=== PATIENT | male | born 1940 | race Caucasian/White ===

== ENCOUNTER → 2017-04-19 | Outpatient (CLI) | payer OTHER | LOC: FIMAGING 09:49 | PROVIDERS: ATTEND Family Medicine | DX: Z13.6 Encounter for screening for cardiovascular disorders (principal); I25.10 Atherosclerotic heart disease of native coronary artery without angina pectoris ==

== ENCOUNTER → 2017-05-30 | Outpatient (CLI) | payer OTHER | PROVIDERS: ATTEND Otolaryngology | DX: R13.14 Dysphagia, pharyngoesophageal phase (principal); K21.9 Gastro-esophageal reflux disease without esophagitis; K22.5 Diverticulum of esophagus, acquired | CPT/HCPCS: 92611-GN ==

== ENCOUNTER 2018-05-27 19:32 | Emergency (ER) | payer OTHER ==
[2018-05-27 19:47] LABS: PLATELET COUNT 241 10^3/uL (150-400)
[2018-05-27 20:01] LABS: INR 1.78 (0.83-1.16); PROTIME(PATIENT) 20.8 SEC (12.0-15.0)
--- NOTE | 2018-05-27 21:11 | EDPHY ---
H & P Stated Complaint: POS SYNCOPAL EPISODE,ABRASIONS Time Seen by Provider: 05/27/18 19:40 HPI/ROS: Chief complaint: Nearly passed out History of present illness: This is a 78-year-old male brought to the emergency department by EMS after having nearly passed out. [place]. He reports he had been sitting in the hot tub for a prolonged period of time. Upon getting out, standing up and walking away from the hot tub he started feel lightheaded. He had to lower himself to the ground. Bystanders report he fell then lowered himself to the ground. He states other than being dizziness there was no precipitating factors such as chest pain or shortness of breath. He states he did not lose consciousness. He remembers the entire event. On my evaluation he states he feels well. He has no complaints. Currently no lightheadedness or dizziness, no chest pain, no shortness of breath. Review of systems: A 10 point review of systems was obtained and other than described above was negative - Personal History Current Tetanus Diphtheria and Acellular Pertussis (TDAP): Unsure Tetanus Vaccine Date: 05/2012 - Medical/Surgical History Hx Asthma: No Hx Chronic Respiratory Disease: No Hx Diabetes: No Hx Cardiac Disease: Yes Hx Renal Disease: No Hx Cirrhosis: No Hx Alcoholism: No Hx HIV/AIDS: No Hx Splenectomy or Spleen Trauma: No Other PMH: cabgx5, htn, ursula, COPD, DIVERTICULUM MICKYS - Social History Smoking Status: Former smoker - Physical Exam Exam: General Appearance: Alert, nontoxic. Eyes: Pupils equal and round no pallor or injection. ENT, Mouth: Mucous membranes moist. Respiratory: There are no retractions, lungs are clear to auscultation. Cardiovascular: Regular rate and rhythm. Gastrointestinal: Abdomen is soft and non tender, no masses, bowel sounds normal. Neurological: Alert and oriented x4. Cranial nerves 2-12 grossly intact. Strength and sensation intact and symmetrical. Skin: Warm and dry, no rashes. Musculoskeletal: Neck is supple non tender. Extremities are symmetrical, full range of motion. Ambulating without difficulty. Psychiatric: Patient is oriented X 3, there is no agitation. Constitutional: Initial Vital Signs Temperature (C) 36.6 C 05/27/18 19:32 Heart Rate 68 11/18/18 19:32 Respiratory Rate 14 05/27/18 19:32 Blood Pressure 124/87 H 05/27/18 19:32 O2 Sat (%) 98 05/27/18 19:32 O2 Delivery Mode Room Air Allergies/Adverse Reactions: No Known Allergies Allergy (Verified 10/03/12 10:42) Home Medications: Medication Instructions Recorded Levothyroxine [Synthroid 100 mcg 100 mcg PO HS 10/03/12 (*)] WARFARIN SODIUM 6 mg PO HS 05/03/16 Medical Decision Making ED Course/Re-evaluation: Patient is discussed with my secondary supervising physician Dr. Trey Falcon. Patient presents with EMS after having a near syncopal episode. He did have a preceding events of being in a hot tub for a prolonged period of time which could have caused a hypovolemic state and vasodilation leading to his near syncopal episode. On my evaluation he is asymptomatic. He is afebrile and vital signs are stable. Physical exam is benign including a nonfocal neurologic exam. Blood studies and EKG are unremarkable. I discussed other possible causes of his episode, although less likely they are still possible. I did offer him admission to the hospital overnight but he would prefer to go home. Home care is discussed. He is asked to follow up with his primary care doctor for recheck. Strict return precautions are given. The patient voiced understanding and agreement with plan. Differential Diagnosis: Included but not limited to hypovolemic state, vasovagal, electrolyte imbalances , cardiac dysrhythmia, ACS, CVA - Data Points Laboratory Results: Laboratory Results 05/27/18 19:32 05/27/18 19:32 05/27/18 05/27/18 05/27/18 20:38 19:32 19:32 WBC RBC Hgb Hct MCV MCH MCHC RDW Plt Count MPV Neut % (Auto) Lymph % (Auto) [place] % (Auto) Eos % (Auto) Baso % (Auto) Nucleat RBC Rel Count Absolute Neuts (auto) Absolute Lymphs (auto) Absolute Monos (auto) Absolute Eos (auto) Absolute Basos (auto) Absolute Nucleated RBC Immature Gran % Immature Gran # PT 20.8 SEC H SEC (12.0-15.0) INR 1.78 H (0.83-1.16) APTT 29.8 SEC SEC (23.0-38.0) Sodium 140 mEq/L mEq/L (135-145) Potassium 4.4 mEq/L mEq/L (3.3-5.0) Chloride 109 mEq/L mEq/L (97-110) Carbon Dioxide 23 mEq/l mEq/l (22-31) Anion Gap 8 mEq/L mEq/L (6-14) BUN 18 mg/dL mg/dL (7-23) Creatinine 1.2 mg/dL mg/dL (0.7-1.3) Estimated GFR 59 Glucose 104 mg/dL H mg/dL (70-100) Calcium 9.7 mg/dL mg/dL (8.5-10.4) POC Troponin I 0.01 ng/mL ng/mL (0.00-0.08) 05/27/18 19:32 WBC 6.10 10^3/uL 10^3/uL (3.80-9.50) RBC 5.36 10^6/uL 10^6/uL (4.40-6.38) Hgb 14.4 g/dL g/dL (13.7-17.5) Hct 44.5 % % (40.0-51.0) MCV 83.0 fL fL (81.5-99.8) MCH 26.9 pg L pg (27.9-34.1) MCHC 32.4 g/dL g/dL (32.4-36.7) RDW 14.6 % % (11.5-15.2) Plt Count 241 10^3/uL 10^3/uL (150-400) MPV 10.5 fL fL (8.7-11.7) Neut % (Auto) 55.8 % % (39.3-74.2) Lymph % (Auto) 33.0 % % (15.0-45.0) [place] % (Auto) 8.2 % % (4.5-13.0) Eos % (Auto) 2.0 % % (0.6-7.6) Baso % (Auto) 0.7 % % (0.3-1.7) Nucleat RBC Rel Count 0.0 % % (0.0-0.2) Absolute Neuts (auto) 3.41 10^3/uL 10^3/uL (1.70-6.50) Absolute Lymphs (auto) 2.01 10^3/uL 10^3/uL (1.00-3.00) Absolute Monos (auto) 0.50 10^3/uL 10^3/uL (0.30-0.80) Absolute Eos (auto) 0.12 10^3/uL 10^3/uL (0.03-0.40) Absolute Basos (auto) 0.04 10^3/uL 10^3/uL (0.02-0.10) Absolute Nucleated RBC 0.00 10^3/uL 10^3/uL (0-0.01) Immature Gran % 0.3 % % (0.0-1.1) Immature Gran # 0.02 10^3/uL 10^3/uL (0.00-0.10) PT INR APTT Sodium Potassium Chloride Carbon Dioxide Anion Gap BUN Creatinine Estimated GFR Glucose Calcium POC Troponin I Point of Care Test Results: Chemistry 05/27/18 20:38 POC Troponin I 0.01 ng/mL ng/mL (0.00-0.08) Departure - Departure Disposition: Home, Routine, Self-Care Clinical Impression: Near syncope Condition: Good Instructions: Near Syncope (ED) Additional Instructions: Please call your primary care doctor tomorrow to discuss your ER visit You were offered admission to the hospital this evening, you declined If you develop any symptoms including but not limited to feeling lightheaded again like you're going to pass out, chest pain, trouble breathing or other signs or symptoms please return immediately to the emergency room Referrals: Jamilah Vidales MD [Primary Care Provider] - As per Instructions
[2018-05-27 21:23] VITALS: BP 128/84
--- NOTE | 2018-05-31 12:34 | CPEKG ---
Test Reason : OPEN Blood Pressure : / mmHG Vent. Rate : 064 BPM Atrial Rate : 064 BPM P-R Int : 182 ms QRS Dur : 105 ms QT Int : 435 ms P-R-T Axes : 061 086 103 degrees QTc Int : 449 ms Sinus rhythm Probable left atrial enlargement Probable anterior infarct, age indeterminate Confirmed by Charles Felix ([id number]) on 05/31/2018 12:34:24 PM Referred By: Confirmed By:Charles Felix
== END 2018-05-27 21:41 | disposition home or self-care (01) ==
LOC: EDUNIT#
DX: R55 Syncope and collapse (principal); J44.9 Chronic obstructive pulmonary disease, unspecified; G47.33 Obstructive sleep apnea (adult) (pediatric); Z95.1 Presence of aortocoronary bypass graft
CPT/HCPCS: 84484-PO

== ENCOUNTER 2018-08-02 08:50 | Observation (INO) | payer OTHER ==
[2018-08-02] MEDS ORDERED: LR 1,000 ML IV ONE (09:11)
[2018-08-02] MEDS ORDERED: LIDOCAINE 1% 2 ML INJ ID PRN (09:11)
[2018-08-02 09:55] LABS: INR 1.06 (0.83-1.16)
[2018-08-02] MEDS ORDERED: DEXAMETHASONE 4 MG/ML VIAL IVP ONE (09:56)
[2018-08-02] MEDS ORDERED: ceFAZolin 2 GM/DEXTROSE 100 ML IV ONE (09:56)
--- NOTE | 2018-08-02 09:56 | PDHPUP ---
History & Physical Update H&P update statement: This history and physical update is based on an assessment of the patient which was completed after admission or registration (within 24 hours), but prior to the surgery/procedure. H&P update: H&P reviewed & patient examined, no change in patient's condition since H&P completed
[2018-08-02] MEDS ORDERED: MIDAZOLAM 2 MG/2 ML VIAL IVP ONE (10:05)
--- NOTE | 2018-08-02 10:05 | PDANEPAE ---
ANE History of Present Illness 78 yo for Zenker closure ANE Past Medical History - Cardiovascular History Hx Hypertension: Yes Hx Arrhythmias: No Hx Chest Pain: Yes Hx Coronary Artery / Peripheral Vascular Disease: Yes Hx CHF / Valvular Disease: No Hx Palpitations: No Cardiovascular History Comment: cabg x5. stents to grafts. SYNCOPE/NEAR SYNCOPE - Pulmonary History Hx COPD: Yes Hx Oxygen in Use at Home: No Hx Sleep Apnea: Yes Sleep Apnea Screening Result - Last Documented: Positive Pulmonary History Comment: NOT USING CPAP OR 02 - Neurologic History Hx Cerebrovascular Accident: No Hx Seizures: No Hx Dementia: No - Endocrine History Hx Diabetes: No - Renal History Hx Renal Disorders: No Renal History Comment: KIDNEY STONES - Liver History Hx Hepatic Disorders: No - Neurological & Psychiatric Hx Hx Neurological and Psychiatric Disorders: No - Cancer History Hx Cancer: No - GI History Hx Gastrointestinal Disorders: Yes Gastrointestinal History Comment: ACID REFLUX - Other Health History Other Health History: CONGESTION. HEALING SLOW R/T COUMADIN. BRUISES EASILY - Chronic Pain History Chronic Pain: No - Surgical History Prior Surgeries: november 2009 CABG x 5. colonoscopy/egd 2016 ANE Review of Systems Review of Systems: - Exercise capacity METS (RN): 3 METS ANE Patient History - Allergies Allergies/Adverse Reactions: No Known Allergies Allergy (Verified 10/03/12 10:42) - Home Medications Home medications: home medication list seen and reviewed Home Medications: Levothyroxine [Synthroid 100 mcg (*)] 100 mcg PO HS 10/03/12 [Last Taken 1 Day Ago ~08/01/18] WARFARIN SODIUM 6 mg PO HS 05/03/16 [Last Taken 07/24/18] Lovenox 60 MG (*) 08/02/18 [Last Taken 08/01/18 11:00] - NPO status NPO Status: no food or drink >8 hours NPO Since - Liquids (Date): 08/02/18 NPO Since - Liquids (Time): 00:00 NPO Since - Solids (Date): 08/02/18 NPO Since - Solids (Time): 00:00 - Anes Hx Anes Hx: no prior problems - Smoking Hx Smoking Status: Former smoker - Family Anes Hx Family Hx Anesthesia Complications: none ANE Labs/Vital Signs - Vital Signs Blood Pressure: 130/82 Heart Rate: 64 Respiratory Rate: 18 O2 Sat (%): 96 Height: 5 ft 11 in Weight: 65.771 kg ANE Physical Exam - Airway Neck exam: FROM Mallampati Score: Class 2 Mouth exam: normal dental/mouth exam - Pulmonary Pulmonary: no respiratory distress - Cardiovascular Cardiovascular: regular rate and rhythym - ASA Status ASA Status: III ANE Anesthesia Plan Anesthesia Plan: general endotracheal anesthesia
[2018-08-02] MEDS ORDERED: EPINEPHrine 1 MG/ML INJ ONE (10:21)
[2018-08-02] MEDS ORDERED: PROPOFOL/EMULSION 500 MG/50 ML BOTTLE IV ONE (10:28)
[2018-08-02] MEDS ORDERED: fentaNYL 100 MCG/2 ML INJ ONE ×2 (10:28→12:01)
[2018-08-02] MEDS ORDERED: REMIFENTANIL HCL 1 MG VIAL ONE (10:28)
[2018-08-02] MEDS ORDERED: ONDANSETRON 4 MG/2 ML VIAL ONE (11:12)
[2018-08-02] MEDS ORDERED: SUGAMMADEX SODIUM 200 MG/2 ML VIAL IVP ONE (11:12)
[2018-08-02] MEDS ORDERED: ONDANSETRON 4 MG/2 ML VIAL IVP PRN ×2 (11:21→11:39)
--- NOTE | 2018-08-02 11:21 | POSTOPPROG ---
Post Op Note Date of Operation: 08/02/18 Surgeon: Oskar Fleming Anesthesiologist: Sandra Anesthesia: GET(General Endotracheal) Pre-op Diagnosis: zenker's diverticulum Post-op Diagnosis: same Procedure: endoscopic repair with stapling and laser of Zenker's Diverticuluim Findings: Zenker's Inf/Abcess present in the surg proc area at time of surgery?: No Depth: Deep Incisional (Fascial) EBL: Minimal Total fluids administered: 1000 Complications: none Specimen(s): none
[2018-08-02] MEDS ORDERED: D5W LR 1,000 ML IV SCH (11:30)
[2018-08-02] MEDS ORDERED: ALBUTEROL 3 ML DEYVIAL IH PRN (11:39)
[2018-08-02] MEDS ORDERED: NALOXONE HCL 0.4 MG/ML INJ IVP PRN (11:39)
[2018-08-02] MEDS: fentaNYL 100 MCG/2 ML INJ IVP PRN ×2 (12:04→12:10)
--- NOTE | 2018-08-02 12:12 | POSTANESTH ---
Post Anesthetic Evaluation Cardiovascular Status: Normal, Stable, Tx Over/Under Hydration Level of Consciousness/Mental Status: Can Participate in Eval Pain Control: Adequate, Prn Tx Ordered Nausea/Vomiting Control: Adequate, Prn Tx Ordered Complications Possibly Related to Anesthesia: None Noted
--- NOTE | 2018-08-02 12:55 | GOP ---
DATE OF OPERATION: 08/02/2018 SURGEON: Paco Fleming MD ANESTHESIA: General endotracheal. PREOPERATIVE DIAGNOSIS: Zenker diverticulum with dysphagia. POSTOPERATIVE DIAGNOSIS: Zenker diverticulum with dysphagia. PROCEDURE PERFORMED: Endoscopic repair of Zenker diverticulum with stapling and laser. FINDINGS: Zenker diverticulum, treated by endoscopic stapling with resection of cricopharyngeus musc le. ESTIMATED BLOOD LOSS: 1 mL. DESCRIPTION OF PROCEDURE: The patient was placed on the operating table in the supine position. Aft er induction of adequate general endotracheal anesthesia, sterile draping was performed. Sterile eye pads and head drape were placed. A tooth guard was placed to protect the upper incisors. The Weerd a laryngoscope was advanced into the oral cavity, and then into the oropharynx. As the scope was adv anced further, the Zenker diverticulum with old food present was countered. Just anterior to this, t he cricopharyngeus muscle and normal esophagus were encountered. The Weerda laryngoscope was advance d into position such that the normal esophagus was anteriorly, the cricopharyngeus muscle horizontall y stretched crossed the midportion and the Zenker diverticulum was located posteriorly once exposure had been obtained. The endoscopic stapler was then brought into position and utilizing the rigid end oscope, the tip of the staple was visualized in position. The stapler was then fired, dividing a lar ge portion of the cricopharyngeus muscle. A portion of the cricopharyngeus inferiorly, however, trudi ined intact. At this point, the CO2 laser was brought in and used on 5 tidwell continuously under micr oscopic visualization to completely divide any residual cricopharyngeus musculature. Once this had b een completed, the Zenker diverticulum communicated into the normal esophagus with no residual cricop haryngeus muscle present. Once this had been completed, the pharynx was suctioned. The laryngoscope was withdrawn. The patient was awakened and transferred to postanesthesia recovery in stable condit ion. FLUID REPLACEMENT: 1000 mL. COMPLICATIONS: None. /[id number]/MODL
[2018-08-02] MEDS: HYDROCOD/APAP 7.5/325 IN 15ML UDCUP PO PRN ×2 (15:38→21:41)
[2018-08-02] MEDS: AMOXICILLIN SUSP 250 MG/5 ML BTL PO SCH ×2 (15:44→21:42)
--- NOTE | 2018-08-02 16:30 | SOAPPROG ---
[facility] Progress Note Assessment/Plan: pt s/p diverticulum repair. Has sore throat pt seen by Dr. frost.. Plan is to discharge tomorrow. Plan: 08/02/18 16:29 Objective: Vital Signs Temp Pulse Resp BP Pulse Ox 36.7 C 80 14 131/88 H 93 08/02/18 15:47 08/02/18 15:47 08/02/18 15:47 08/02/18 15:47 08/02/18 15:47 08/01/18 08/02/18 08/03/18 05:59 05:59 05:59 Intake Total 1330 Balance 1330 PT 14.0 SEC (12.0-15.0) 08/02/18 09:35 INR 1.06 (0.83-1.16) 08/02/18 09:35 ICD10 Worksheet Patient Problems: Problems Problem Status Onset Diverticular disease of esophagus Acute - ICD10 Problem Qualifiers (1) Diverticular disease of esophagus
[2018-08-03 07:54] VITALS: BP 100/63
[2018-08-03] MEDS: AMOXICILLIN SUSP 250 MG/5 ML BTL PO SCH (08:26)
[2018-08-03] MEDS ORDERED: ENOXAPARIN 30 MG/0.3 ML SYR SC SCH (09:00)
--- NOTE | 2018-08-03 09:37 | PDDCSUM ---
Discharge Summary Discharge Summary: Pt POD #1 s/p endoscopic stapling of zenker's diverticulum Pt doing well. On liquid diet. No complaints Okay to discharge. Advance to soft diet Okay to restart coumadin 08/09/[address] Fleming
== END 2018-08-03 11:50 | disposition home or self-care (01) ==
LOC: F3N 08:50 → F3E 12:39
PROVIDERS: ADMIT Otolaryngology; ATTEND Otolaryngology
PROC: 0DQ58ZZ Repair Esophagus, Via Natural or Artificial Opening Endoscopic (ICD-10-PCS; principal; 2018-08-02 10:15)
DX: K22.5 Diverticulum of esophagus, acquired (principal); I10 Essential (primary) hypertension; I25.10 Atherosclerotic heart disease of native coronary artery without angina pectoris; Z95.1 Presence of aortocoronary bypass graft; Z95.5 Presence of coronary angioplasty implant and graft; J44.9 Chronic obstructive pulmonary disease, unspecified; G47.33 Obstructive sleep apnea (adult) (pediatric); K21.9 Gastro-esophageal reflux disease without esophagitis
CPT/HCPCS: 43180; G0378; J0690; J1100; J1650; J2250; J2405; J2704; J3010; J0171

== ENCOUNTER → 2019-01-04 | Outpatient (CLI) | payer OTHER | LOC: FIMAGING 11:14 ==